=== PATIENT | female | born 1945 | race Caucasian/White ===

== ENCOUNTER → 2025-05-02 00:21 | Outpatient (CLI) | payer MEDICARE, OTHER, SELFPAY ==
--- NOTE | 2025-05-02 08:00 | DI.US_ITS ---
Exam(s) US NEEDLE LOCAL OTHER WO RAD EXAM: Right vocal cord paralysis, right thyroid nodule, J38.01, E04.1 COMPARISON: No exams were available for comparison TECHNIQUE: Ultrasound performed using standard protocol. FINDINGS: Sonography was provided for Dr. Hensley during the performance of a right thyroid nodule biopsy. Please refer to the procedure report for complete details. DATA REPOSITORY:
--- NOTE | 2025-05-02 12:15 | PAPNONF_PTH ---
PATIENT: Susan Nunes LOC: [facility] U#:[id number] AGE/SX: 80/F ROOM: RE05/02/[address]: Devin Hensley MD : [id number] BED: DIS: SPEC #: [id number] RECD: 05/02/25 12:46 STATUS: JERICA REWade #: [id number] EB: 05/02/25 12:[address]: Devin Hensley DEPT: [facility] Cytology RECD BY: Lana Ruiz ENTERED: 05/02/25 12:47 SP TYPE: PACO MAGALLON DR: Joseph Brenner MD Tissues: 1 - BODY FLUID CYTO-FINE NEEDLE [facility]IRATE-[facility] Procedures: BODY FLUID CYTO-FINE NEEDLE ASPIRATE-[facility] Comments: [id number] (PATH FNA CONSULT) (REFRIGERATED)
--- NOTE | 2025-05-02 12:39 | OPPNE_ITS ---
Date of service: 05/02/25 Time of Service: 12:39 Procedure Note Date of procedure: 05/02/25 Procedure: Ultrasound-guided FNA, right thyroid nodule, pathology present Surgeon/Proceduralist/Physician: Devin Hensley Procedure Diagnosis: Right thyroid nodule, right vocal cord paralysis Procedure Indications: The patient has a right thyroid nodule meeting criteria for biopsy sitting within the tracheoesophageal groove with right vocal cord paralysis. The overall size of the nodule has not increased in size since it was previously ultrasounded but the nodule had not been biopsied. Options were explained to the patient. She elected to undergo the above procedure. Consent was signed and signed prior to procedure. The below was then performed. Procedure Description: The patient was positioned in a supine position with her neck slightly extended. She was prepped and draped in appropriate fashion and ultrasound used to localize the right sided thyroid nodule. 2% lidocaine with 1/100,000 epinephrine was injected in the skin and subcutaneous tissues overlying the medial aspect of the thyroid nodule and then using ultrasound guidance, a 25- gauge needle was passed into the thyroid nodule repeatedly. The specimen was handed to pathology who verified adequate cellularity. 2 additional passes were made for potential Afirma testing. After ensuring adequate hemostasis, sterile dressing was applied the patient was allowed to sit, stand, and ambulate. Her vital signs remained stable. She will avoid any strenuous activities today. She will remove the bandage within the next couple of hours. She will call with any signs of infection or if she does not hear from me with regard to the pathology results within 1 week. Further care will depend upon the findings on biopsy. She had no further questions. She is comfortable with this plan.
== END ==
LOC: DI 00:21
PROVIDERS: PCP Family Medicine; Visit Provider Otolaryngology
DX: D44.0 Neoplasm of uncertain behavior of thyroid gland (principal); J38.01 Paralysis of vocal cords and larynx, unilateral
CPT/HCPCS: 10005; 76942; 88104